=== PATIENT | female | born 1985 | race Two or more races ===

== ENCOUNTER 2025-03-19 14:03 | Emergency (ER) | payer OTHER ==
[~2025-03-19] VITALS: Ht 154.9 cm; Wt 68.9 kg
== END 2025-03-19 18:16 | disposition home or self-care (01) ==
LOC: ER 14:03
DX: G89.11 Acute pain due to trauma (principal); R51.9 Headache, unspecified

== ENCOUNTER → 2025-07-30 | Emergency (ER) | payer OTHER ==
[~2025-07-30] VITALS: Ht 154.9 cm; Wt 60.8 kg
[2025-07-30 10:20] VITALS: BP 121/77; O2SAT 99
== END | disposition home or self-care (01) ==
LOC: ER 08:55
DX: B00.89 Other herpesviral infection (principal); B37.31 Acute candidiasis of vulva and vagina